=== PATIENT | male | born 1975 | race African-American/Black ===

== ENCOUNTER 2018-07-01 12:59 | Emergency (ER) | payer OTHER ==
[~2018-07-01] VITALS: Ht 188 cm; Wt 271.4 kg
[~2018-07-01 12:59] MED LIST: EPINEPHrine 1:10,000 [1 MG/10 ML] SYRINGE IVP ONE
[2018-07-01] MEDS ORDERED: ENAL2.5 PO (13:10)
[2018-07-01] MEDS ORDERED: ATOR40TA28 PO (13:10)
[2018-07-01] MEDS ORDERED: BUME1TAB17 PO (13:10)
[2018-07-01] MEDS ORDERED: RIVA20TA PO (13:10)
[2018-07-01] MEDS ORDERED: METO50 PO (13:10)
[2018-07-01] MEDS ORDERED: INSU100V SQ (13:15)
[2018-07-01] MEDS ORDERED: INSLAN SQ (13:15)
[2018-07-01 13:27] VITALS: BP 0/0
== END 2018-07-01 13:12 | disposition expired ==
LOC: EMS 13:00
DX: I46.9 Cardiac arrest, cause unspecified (principal); E66.01 Morbid (severe) obesity due to excess calories; I11.0 Hypertensive heart disease with heart failure; I50.9 Heart failure, unspecified; E11.9 Type 2 diabetes mellitus without complications; F17.210 Nicotine dependence, cigarettes, uncomplicated; Z68.45 Body mass index [BMI] 70 or greater, adult; Z79.4 Long term (current) use of insulin
CPT/HCPCS: 31500; 82962; 92950; 99291; J0171